=== PATIENT | male | born 1950 | race Caucasian/White ===

== ENCOUNTER → 2024-02-19 09:41 | Outpatient (REF) | payer MEDICARE, OTHER, SELFPAY | LOC: HWRAD 09:41 | PROVIDERS: ATTENDING PHYSICIAN Internal Medicine Rheumatology; FAMILY PHYSICIAN Family Medicine | DX: M10.9 Gout, unspecified (principal); M25.561 Pain in right knee; M25.562 Pain in left knee; M79.671 Pain in right foot; M79.672 Pain in left foot | CPT/HCPCS: 73562; 73630 ==

== ENCOUNTER 2024-09-09 06:14 | Day surgery (SDC) | payer MEDICARE, OTHER, SELFPAY ==
[2024-09-09] VITALS (7 sets, daily range): BP systolic 138–156; BP diastolic 75–90; BMI 25.5
[2024-09-09] MEDS: TYLENOL 1000 MG PO (06:52)
--- NOTE | 2024-09-09 07:19 | W.SUR.PREOP ---
Pre-Operative Surgical Note
-
I have examined this patient prior to the performance of the scheduled procedure.
The patient's condition is unchanged from the time of the current History and
Physical and the patient is able to undergo the scheduled procedure.
--- NOTE | 2024-09-09 08:48 | W.IMMPOSTOP ---
Surgical Immed Post Op Note
-
Primary Surgeon: Onesimo Lerma MD
Assisting Surgeon: None
Pre-op Diagnosis: Right inguinal hernia
Post-op Diagnosis: Same
Procedure Performed:
1. Open right inguinal hernia repair with mesh
2. Inguinal neurectomy x 2
Anesthesia Type: General
Specimen / Cultures:
1. Cord lipoma
2. Inguinal nerves x 2
Estimated Blood Loss: 3 cc
Complications: None
Operative Findings: Small indirect inguinal hernia. Small cord lipoma resected. There is also weakness in the transversalis fascia of the direct space that was imbricated. The floor was reinforced with a Bard soft 7.5 x 15 cm mesh cut to size.
--- NOTE | 2024-09-09 08:51 | OR.RPT ---
Operative Report
Operative Report
Patient Name: Rangel Saenz
: 1950
Date of Operation: 09/09/2024
Preoperative Diagnosis: Reducible Inguinal hernia, right
Postoperative Diagnosis: Same
Procedure(s):
Open Inguinal Hernia Repair
Inguinal neurectomy x 2
Surgeon(s):
Dr. Lerma
Remanufacturing Technician(s):
GABY Mcpherson
Anesthesia: General
Estimated Blood Loss: 3 cc
Urine Output: None
Drains/Lines/Implants: 3 x 6 inch Bard Flat Mesh cut to size
Specimens: None
Indication for surgery: The patient has a history of groin pain and some asymmetry noted on exam and was found to have a symptomatic right inguinal Hernia. Following review of therapeutic options they has elected to undergo an open repair
Operative Findings: Small indirect inguinal hernia. Small cord lipoma resected. There is also weakness in the transversalis fascia of the direct space that was imbricated. The floor was reinforced with a Bard soft 7.5 x 15 cm mesh cut to size.
Details of the operation:
After induction of general anesthesia, the patient was clipped, prepped and draped in the supine position. A team timeout was performed confirming administration of DVT prophylaxis, IV antibiotics and SCDs. The ASIS and pubic tubercle were marked
and an incision was chosen along the course of a skin line. The skin was anesthestized with Lidocaine. An incision was made through the skin line and dissection carried down through subcutaneous tissue and Obdulio's fascia. The superficial
epigastric vein was identified and ligated. A Small Ramos wound retractor was used to provide exposure. The external oblique fibers were then divided in the direction of travel. The ilioinguinal nerve was identified and resected. Dissection was
carried down to the floor, which revealed the following:
At the site of the indirect (internal) ring, there was a moderate size protrusion of preperitoneal fat, the hernia sac was identified, dissected and reduced off the cord structures.
A cord lipoma was also identified and resected.
The direct space, floor of the canal revealed a small weakness in the transversalis fascia was indicated with a 3-0 Vicryl.
The general branch of the general femoral nerve was also identified and as it was fairly exposed was also resected.
The floor of the canal was then reconstructed by placing a 6x3 in BARD flat polypropylene mesh trimmed to size and secured it in place with interrupted 0-PDS sutures medially at the pubic tubercle, inferiorly along the inguinal ligament,
laterally/superiorly in the conjoint tendon. A vertical slit was made in the mesh just wide enough to accommodate the cord this was also reapproximated with the PDS suture. Care was taken not to injure or entrap any nerves. The external oblique
fibers were then closed using a running 2-0 Vicryl suture. Obdulio's fascia was then closed with interrupted 3-0 Vicryl suture. The skin was closed in layers with interrupted 3-0 vicryl deep dermals followed by a running subcuticular 4-0 Monocryl
followed by dermabond. The patient returned to the Recovery Room in stable condition. Sponge and instrument counts were correct. No specimens sent to Pathology.
I was the attending physician and performed the procedure with assistance from the DENTAL OFFICE ASSISTANT above. I was present for all portions of the case, excluding skin closure.
Onesimo Lerma MD
== END 2024-09-09 10:30 | disposition home or self-care (01) ==
LOC: SDS 06:14
PROVIDERS: ATTENDING PHYSICIAN Surgery
DX: K40.90 Unilateral inguinal hernia, without obstruction or gangrene, not specified as recurrent (principal); D17.6 Benign lipomatous neoplasm of spermatic cord
CPT/HCPCS: 49505; 55520; 88304; 88305